=== PATIENT | female | born 1950 | race Two or more races ===

== ENCOUNTER 2022-06-21 16:30 | Emergency (ER) | payer OTHER ==
[~2022-06-21] VITALS: Ht 162.6 cm; Wt 90.7 kg
--- NOTE | 2022-06-21 18:32 | NUR ---
Patient discharged to home in stable condition. Written and verbal after care instructions given. Patient verbalizes understanding of instruction.
[2022-06-21 18:39] VITALS: BP 140/85
== END 2022-06-21 18:40 | disposition home or self-care (01) ==
LOC: ER 16:33
DX: I10 Essential (primary) hypertension (principal); R51.9 Headache, unspecified
CPT/HCPCS: 70450-TC

== ENCOUNTER 2023-11-29 10:37 | Inpatient (IN) | payer MEDICARE, OTHER ==
[~2023-11-29] VITALS: Ht 162.6 cm; Wt 80.3 kg
[~2023-11-29 10:37] MED LIST: ATOR20TA PO; CLON0.1T PO; METO-357 PO; NIFE-57 PO
[2023-11-29] MEDS: IV NS 0.9% 1,000 ML BAG IV ONE (11:00)
[2023-11-29] MEDS: DEXTROSE 50%-WATER 50 ML DISP.SYRIN IV ONE (11:00)
[2023-11-29] MEDS ORDERED: ACYC200C31 PO (11:07)
[2023-11-29] MEDS ORDERED: FURO-144 PO (11:07)
[2023-11-29 11:27] LABS: BASOPHILS % (AUTO) 0.3 % (0.0-2.0); EOSINOPHILS % (AUTO) 0.2 % (0.0-6.0); HEMATOCRIT 43 % (33-45); HEMOGLOBIN 14.3 g/dL (11.5-14.8); LYMPHOCYTES # (AUTO) 0.6 K/uL (0.8-4.8); LYMPHOCYTES % (AUTO) 6.5 % (20.0-44.0); MEAN CORPUSCULAR HEMOGLOBIN 33 PG (26.0-33.0); MEAN CORPUSCULAR HGB CONC 33 g/dl (31.0-36.0); MEAN CORPUSCULAR VOLUME 99 fL (82-100); MONOCYTES # (AUTO) 0.3 K/uL (0.1-1.30); MONOCYTES % (AUTO) 3.8 % (2.0-12.0); NEUTROPHILS # (AUTO) 7.8 K/uL (1.8-8.9); NEUTROPHILS % (AUTO) 89.2 % (43.0-81.0); PLATELET COUNT (AUTO) 212 K/uL (150-450); RED BLOOD CELL COUNT(AUTO) 4.37 MIL/uL (4.0-5.2); RED CELL DISTRIBUTION WIDTH 15.1 % (11.5-15.0); WHITE BLOOD COUNT (AUTO) 8.8 K/uL (4.3-11.0)
[2023-11-29 11:38] LABS: INR 0.92 (0.91-1.10); PARTIAL THROMBOPLASTIN TIME 33.2 SEC (24.3-34.3); PROTHROMBIN TIME 9.8 SECS (9.2-11.1)
[2023-11-29 11:44] LABS: CALCIUM, SERUM 9.9 mg/dL (8.5-10.1); CARBON DIOXIDE 29 mmol/L (21-32); CHLORIDE 101 mmol/L (98-107); CREATININE 2.4 mg/dL (0.6-1.3); GLUCOSE 72 mg/dL (74-106); POTASSIUM 4.5 mmol/L (3.5-5.1); SODIUM SERUM 136 mmol/L (136-145); UREA NITROGEN, BLOOD 40 mg/dL (7-18)
[2023-11-29 11:52] LABS: ALANINE AMINOTRANSFERASE 22 U/L (12-78); ALBUMIN 3.4 g/dL (3.4-5.0); ALCOHOL, BLOOD < 3 mg/dL (0-10); ALKALINE PHOSPHATASE 126 U/L (46-116); ASPARTATE AMINOTRANSFERASE 23 U/L (15-37); BILIRUBIN,DIRECT 0.1 mg/dL (0.0-0.2); BILIRUBIN,TOTAL 0.4 mg/dL (0.2-1.0); TOTAL PROTEIN, SERUM 7.1 g/dL (6.4-8.2)
[2023-11-29 11:56] LABS: SERUM AMMONIA < 10 umol/L (11-32)
[2023-11-29 11:58] LABS: THYROID STIMULATING HORMONE 1.735 uIU/mL (0.358-3.74)
[2023-11-29 12:52] LABS: APPEARANCE,URINE CLEAR (CLEAR); BILIRUBIN,URINE NEGATIVE (NEGATIVE); BLOOD, URINE TRACE-INTA Ery/uL (NEGATIVE); COLOR,URINE YELLOW (YELLOW); KETONES,URINE NEGATIVE (NEGATIVE); LEUKOCYTE ESTERASE ,URINE NEGATIVE (NEGATIVE); NITRITE, URINE NEGATIVE (NEGATIVE); PROTEIN,URINE 2+ mg/dl (NEGATIVE); UGLUCOSE NEGATIVE (NEGATIVE); UROBILINOGEN,URINE 0.2 EU/dL (0.2)
[2023-11-29 12:58] LABS: ADD URINE CULTURE NO; BACTERIA,URINE None seen /HPF (None Seen); RBC,URINE 0-2 /HPF (0-2); SQUAMOUS EPITHELIAL CELL,UR Rare /HPF (None Seen); WBC,URINE 0-2 /HPF (0-3)
[2023-11-29 13:18] LABS: AMPHETAMINE, URINE NEGATIVE (NEGATIVE); BARBITURATE, URINE NEGATIVE (NEGATIVE); BENZODIAZEPINE, URINE NEGATIVE (NEGATIVE); CANNABINOID, URINE NEGATIVE (NEGATIVE); COCCAINE, URINE NEGATIVE (NEGATIVE); OPIATE, URINE NEGATIVE (NEGATIVE); PHENCYCLIDINE SCREEN,URINE NEGATIVE (NEGATIVE)
[2023-11-29] MEDS ORDERED: Z GUARD REMEDY 4 OZ OINT TP PRN (14:30)
[2023-11-29] MEDS ORDERED: ONDANSETRON HCL/PF 4 MG/2 ML VIAL IVP PRN (14:30)
[2023-11-29] MEDS ORDERED: HYDROCODONE/APAP 5/325MG TABLET PO PRN (14:30)
[2023-11-29] MEDS ORDERED: ACETAMINOPHEN 325 MG TABLET PO PRN (14:30)
[2023-11-29] MEDS ORDERED: DEXTROSE 50%-WATER 50 ML DISP.SYRIN ONE (15:12)
[2023-11-29] MEDS: DEXTROSE 50%-WATER 50 ML DISP.SYRIN IV PRN (15:16)
[2023-11-29] MEDS: NIFEdipine XL (30MG) 30 MG TAB PO SCH (16:30)
[2023-11-29] MEDS: METOPROLOL SUCCINATE 50 MG TAB.SR.24H PO SCH (16:30)
[2023-11-29] MEDS: ACYCLOVIR 200 MG CAPSULE PO SCH (16:51)
[2023-11-29] MEDS: BLOOD SUGAR DIAGNOSTIC 1 EACH STRIP IN SCH (17:30)
[2023-11-29 20:00] VITALS: BP 131/78; TEMP 98.6; O2SAT 96
[2023-11-29] MEDS: ATORVASTATIN 10 MG TABLET PO SCH (21:28)
[2023-11-29] MEDS: CLONIDINE HCL 0.1 MG TABLET PO SCH (21:28)
[2023-11-29] MEDS: INSULIN REGULAR, HUMAN 100 UNIT/ML 3 ML VIAL SQ PRN (22:05)
[2023-11-30] VITALS: BP 140/61; TEMP 97.7
[2023-11-30] MEDS: IV D5/0.45 NACL 1,000 ML IV PRN (02:01)
[2023-11-30 04:00] VITALS: BP 126/76; TEMP 97.9; O2SAT 97
[2023-11-30 07:22] LABS: BASOPHILS % (AUTO) 0.4 % (0.0-2.0); EOSINOPHILS # (AUTO) 0.1 K/uL (0.0-0.7); EOSINOPHILS % (AUTO) 0.8 % (0.0-6.0); HEMATOCRIT 39 % (33-45); HEMOGLOBIN 12.9 g/dL (11.5-14.8); LYMPHOCYTES # (AUTO) 2.5 K/uL (0.8-4.8); LYMPHOCYTES % (AUTO) 27.4 % (20.0-44.0); MEAN CORPUSCULAR HEMOGLOBIN 33 PG (26.0-33.0); MEAN CORPUSCULAR HGB CONC 33 g/dl (31.0-36.0); MEAN CORPUSCULAR VOLUME 99 fL (82-100); MONOCYTES # (AUTO) 0.7 K/uL (0.1-1.30); MONOCYTES % (AUTO) 7.8 % (2.0-12.0); NEUTROPHILS # (AUTO) 5.8 K/uL (1.8-8.9); NEUTROPHILS % (AUTO) 63.6 % (43.0-81.0); PLATELET COUNT (AUTO) 212 K/uL (150-450); RED BLOOD CELL COUNT(AUTO) 3.97 MIL/uL (4.0-5.2); RED CELL DISTRIBUTION WIDTH 15.2 % (11.5-15.0); WHITE BLOOD COUNT (AUTO) 9.1 K/uL (4.3-11.0)
[2023-11-30 07:50] LABS: CALCIUM, SERUM 9.4 mg/dL (8.5-10.1); CARBON DIOXIDE 24 mmol/L (21-32); CHLORIDE 104 mmol/L (98-107); CREATININE 2.7 mg/dL (0.6-1.3); MAGNESIUM 2.7 mg/dL (1.8-2.4); PHOSPHORUS 3.6 mg/dL (2.5-4.9); POTASSIUM 4.3 mmol/L (3.5-5.1); SODIUM SERUM 136 mmol/L (136-145); UREA NITROGEN, BLOOD 50 mg/dL (7-18)
[2023-11-30 08:06] LABS: GLUCOSE 29 mg/dL (74-106)
[2023-11-30] MEDS: PANTOPRAZOLE 40 MG TABLET.DR PO SCH (08:21)
[2023-11-30 09:55] VITALS: BP 140/70; TEMP 97.9; O2SAT 97
[2023-12-01 13:11] LABS: *C PEPTIDE 22.8 ng/mL (1.1-4.4)
== END 2023-11-30 12:53 | disposition left against medical advice (07) | DRG 640 ==
LOC: ER 10:38 → TELE1 15:13
DX: E16.2 Hypoglycemia, unspecified (principal); N18.6 End stage renal disease; I12.0 Hypertensive chronic kidney disease with stage 5 chronic kidney disease or end stage renal disease; Z99.2 Dependence on renal dialysis; E78.5 Hyperlipidemia, unspecified; E83.42 Hypomagnesemia; Z79.899 Other long term (current) drug therapy; Z90.12 Acquired absence of left breast and nipple; Z85.3 Personal history of malignant neoplasm of breast; E83.9 Disorder of mineral metabolism, unspecified; M89.8X9 Other specified disorders of bone, unspecified site; Z85.79 Personal history of other malignant neoplasms of lymphoid, hematopoietic and related tissues
CPT/HCPCS: 36415; 70450-TC; 71045-TC; 80048-TC; 80076-TC; 81001; 82140-TC; 82962-TC; 83735-TC; 84100-TC; 84443-TC; 84484-TC; 85025-TC; 85730-TC; A4223; G0378; G0480; J1815; J3490; J7030